=== PATIENT | male | born 1990 | race African-American/Black ===

== ENCOUNTER 2018-06-16 09:00 | Emergency (ER) | payer OTHER, MEDICAID ==
[~2018-06-16] VITALS: Ht 177.8 cm; Wt 81.6 kg
[2018-06-16] MEDS ORDERED: TDAP DIPH,PERTUSS,TET VAC/PF 0.5 ML DISP.SYRIN IM ONE ×2 (09:15→09:27)
[2018-06-16] MEDS ORDERED: NEOMY/BACITRA/POLYMYXIN B OINT UD PACKET TP ONE ×2 (09:15→09:19)
[2018-06-16] MEDS ORDERED: ACETAMINOPHEN ES 500 MG TABLET PO ONE (09:15)
[2018-06-16] MEDS ORDERED: ACETAMINOPHEN ES 500 MG TABLET ONE (09:27)
--- NOTE | 2018-06-16 09:57 | NUR ---
Patient discharged to home in stable conditon. Written and verbal after care instructions given. Patient verbalizes understanding of instructions.PT WALKS IN STEADY GAIT. PT DENLORI ZHENG DIZZINESS, N/V OR ANY OTHER COMPLAIN AT THIS POINT.
[2018-06-16 09:58] VITALS: BP 131/79
== END 2018-06-16 09:59 | disposition home or self-care (01) ==
LOC: ER 09:00
DX: S80.11XA Contusion of right lower leg, initial encounter (principal); S40.811A Abrasion of right upper arm, initial encounter; V29.9XXA Motorcycle rider (driver) (passenger) injured in unspecified traffic accident, initial encounter; Y93.89 Activity, other specified; Y92.89 Other specified places as the place of occurrence of the external cause; Y99.8 Other external cause status
CPT/HCPCS: 73590; 90471; 90715; 99284; A4663; A9150